=== PATIENT | male | born 1935 | race African-American/Black ===

== ENCOUNTER 2020-08-16 12:45 | Emergency (ER) | payer OTHER, SELFPAY ==
--- NOTE | ~2020-08-16 | XR_ITS ---
EXAMINATION: XR CHEST CLINICAL INFORMATION: Syncope COMPARISON: 03/17/2007 TECHNIQUE: Frontal view of the chest was obtained. FINDINGS: Extreme lordotic positioning limits assessment. No focal consolidation, pleural effusion or pneumothorax. The lungs are hyperinflated with flattening of the diaphragms, unchanged. Heart size is normal. Calcifications aortic arch. No acute osseous abnormality. Degenerative changes of the shoulders. XR/XR chest 1V IMPRESSION: No acute pulmonary process. COPD.
--- NOTE | ~2020-08-16 | CT_ITS ---
EXAMINATION: CT OF THE HEAD WITHOUT CONTRAST CT OF THE CERVICAL SPINE WITHOUT CONTRAST CLINICAL INFORMATION: Pain status post fall. Syncope. Head injury. COMPARISON: None. TECHNIQUE: Contiguous axial imaging was performed from the skullbase to vertex without intravenous administration of contrast. Coronal reformations of the head were obtained. Contiguous axial imaging was then performed from the skull base down to the thoracic inlet. Coronal and sagittal reformations of the cervical spine were obtained. DLP: 415.36 mGy-cm. FINDINGS: CT scan of the head: There is a small soft tissue contusion along the anterior frontal convexity without underlying calvarial fracture seen. The osseous structures are intact. There is evidence of subtle subarachnoid hemorrhage along the right frontoparietal lobe. No definite subdural hematoma is seen. There are subtle chronic bilateral hygromas versus prominence of the CSF space. No abnormal acute mass-effect or midline shift is seen. No extra-axial fluid collections are identified. There is some density seen within the right external auditory canal, probably representing cerumen. However, close clinical correlation is requested to exclude hemorrhage. No definite basilar skull fracture is noted. The ventricles and sulci are enlarged, consistent with involutional changes. 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 There is no evidence of acute territorial infarction. There is mild periventricular and deep white matter low-attenuation, consistent with ischemic small vessel disease. The mastoid air cells and visualized portions of the paranasal sinuses are well-aerated. CT scan of the cervical spine: There is a reversal of the normal cervical lordosis, possibly related to patient positioning. No evidence of acute fracture or dislocation. Craniocervical junction and atlantoaxial articulations are intact with prominent hypertrophic changes and degenerative changes noted. Prevertebral soft tissues are normal in thickness. There is severe degenerative disc disease with partial fusion across the disc spaces at C3-4, C4-5 and there is severe degenerative disc disease at C5-6 and C6-7. Small posterior disc osteophyte complexes are seen projecting into the thecal sac at multiple levels. Mild facet arthropathy is seen throughout the cervical spine. Ossifications at the tips of the posterior spinous processes in the mid and lower cervical spine are noted. The included soft tissues of the neck are unremarkable. Mild biapical pleural-based reticular nodular opacities seen in the lung apices, consistent with scarring. CT/CT cervical spine wo con IMPRESSION: CT scan of the head: -Small amount of subarachnoid hemorrhage is seen along the right frontoparietal lobe. Small scalp hematoma is also noted in this region. -There is suspicion of subtle chronic bilateral hygromas versus prominence of the CSF space. No definite subdural or epidural hematoma is seen. -No calvarial fracture. 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 CT scan of the cervical spine: -No evidence of acute cervical spine fracture or malalignment. -Extensive chronic degenerative changes throughout the cervical spine. This critical result was discussed with Dr. Erik Guerra 08/16/2020, 2:10 PM and it was ascertained that the content and urgency of this report was understood at the time of direct communication.
[2020-08-16 12:55] VITALS: BP 137/69; PULSE 80; RESP 16; TEMP 36.8; O2SAT 100; BMI 20.7
--- NOTE | 2020-08-16 13:05 | ECG_ITS ---
Test Reason : SYNCOPY Blood Pressure : / mmHG Vent. Rate : 072 BPM Atrial Rate : 072 BPM P-R Int : 216 ms QRS Dur : 146 ms QT Int : 430 ms P-R-T Axes : 067 -56 077 degrees QTc Int : 470 ms Sinus rhythm with sinus arrhythmia with 1st degree A-V block Left axis deviation Right bundle branch block Left ventricular hypertrophy with repolarization abnormality Cannot rule out Septal infarct , age undetermined Abnormal ECG No previous ECGs available Referred By: Erik Guerra Electronically Signed By:KATEY LACY MD
--- NOTE | 2020-08-16 13:08 | ED.SYNCOPE ---
HPI - Syncope General Chief Complaint: Syncope Stated Complaint: syncope Time Seen by Provider: 08/16/20 13:04 Source: patient and EMS Mode of arrival: EMS Limitations: no limitations History of Present Illness HPI narrative: 84-year-old male came into the emergency department by ambulance for evaluation of fall. 84-year-old male who [place] today, patient unable to remember details last thing he was remembering going down the escalator, then patient remember that bystander was around him, and he was bleeding from the back of his head and he was told that he blacked out. Patient otherwise declined any chest pain, shortness of breath, or abdominal pain. Patient is diabetic taking Glucophage, patient did not have breakfast today but also he did not take his medication yet. Patient had no history of syncopal episode in the past. Last physical exam was month ago and reportedly by the patient was unremarkable, patient do not remember the last tetanus shot. Related Data Allergies Allergy/AdvReac Type Severity Reaction Status Date / Time lisinopril Allergy Swelling Verified 08/16/20 12:58 Review of Systems Review of Systems: All other systems are reviewed and are negative Constitutional: Reports as per HPI and Reports no additional constitutional complaints Eyes: Reports as per HPI and Reports no additional eye complaints Reports system reviewed and no additional complaints, except as documented Cardiovascular: Reports as per HPI and Reports no additional cardiovascular complaints Respiratory: Reports as per HPI and Reports no additional respiratory complaints Gastrointestinal: Reports as per HPI and Reports no additional gastrointestinal complaints Genitourinary: Reports no additional female genitourinary complaints Musculoskeletal: Reports no additional musculoskeletal complaints Skin/Breast: Reports system reviewed and no additional complaints, except as docu Psychiatric: Reports no additional psychiatric complaints Endocrine: Reports no additional endocrine complaints Hematologic/Lymphatic: Reports no additional hematologic/lymphatic complaints Allergic/Immunologic: Reports no additional allergic/immunologic complaints Reports system reviewed and no additional complaints, except as documented and Reports Abnormal speech present [facility] Past Medical History Medical History Diabetes High cholesterol HTN (hypertension) Social History Social History Alcohol intake: never Smoked in Last 30 Days: No Use of substances other than those prescribed or required for medical reasons: No Advance Directives: Yes Advance Directives Information Provided: No Advance Directives on File: No Physical Exam Vital Signs: Vital Signs: Last Vital Signs Temp 98.3 F 08/16/20 12:55 Pulse 77 08/16/20 14:41 Resp 18 08/16/20 14:41 BP 144/68 H 08/16/20 14:41 Pulse Ox 99 08/16/20 14:41 Body Mass Index 20.7 Vital signs have been reviewed as appeared to be correct. Blood pressure normal. Heart rate normal. Respiration rate normal. Temperature normal. Oxygen saturation normal. Appearance: Alert. Oriented X3. No acute distress. Head: 3 cm laceration on the occipital area, mild bleeding. The galea is intact. Eyes: PERRLA. EOMI. Conjunctiva and sclera normal. Eyelids normal. ENT: TM's Normal. Pharynx normal. Uvula midline. Moist mucous membranes. No trismus noted. No drooling noted. No muffled voice noted. Neck: Normal inspection. Neck supple. FROM. No adenopathy. Thyroid Normal. No meningeal signs. No neck mass noted. CVS: Normal heart rate and rhythm. Heart sound normal. No murmurs noted. Pulses normal throughout. Respiratory: No respiratory distress. Painless inspiration. Breath sounds normal. No wheezes/rales/rhonchi noted. Chest nontender. No accessory muscle usage noted or decreased air movement noted. Abdomen: Soft and nontender. Bowel sounds normal in all 4 quadrants. No distention noted. No organomegaly noted. No visible injury noted. Back: No CVA tenderness. Full range of motion noted. Skin: Skin warm and dry. Normal skin color. Normal skin turgor. No rashes/lesions/lacerations noted. Extremities: No lower extremity edema. Extremities exhibit normal range of motion. Extremities nontender. Neuro: Oriented X 3. No motor deficit. No sensory deficit. Reflexes normal. GCS 15 Course Course Course Narrative: Assessment and plan. 84-year-old male came in by ambulance after have a syncopal episode with head injury, GCS of 15, patient had a CT of the head which showed a small subarachnoid hemorrhage of a right frontal parietal lobe, case was discussed with at [facility] to transfer the patient to be evaluated by the trauma team. Procedures Laceration Laceration 1: Site: scalp (Mid occipital) Size (cm): 3 Description: linear Depth: simple, single layer Local Anesthetic: lidocaine 1% Amount of anesthesia used (mL): 2 Skin layer closed with: other ([place]) Number of sutures: 3 MDM - Syncope Lab Data Attestation: I reviewed the patient's lab results. Result diagrams: 08/16/20 14:30 08/16/20 14:30 Labs: Lab Results 08/16/20 08/16/20 Range/Units 13:58 14:30 WBC 6.1 (4.8-10.8) X10*3/uL RBC 4.84 (4.60-5.80) X10*6/uL Hgb 12.8 L (14.0-18.0) g/dl Hct 40.9 L (42-52) % MCV 84.5 (80-98) fL MCH 26.4 L (27.0-33.0) pg MCHC 31.3 (31.0-36.0) g/dl RDW 14.9 (11.0-16.0) % Plt Count 208 (160-400) X10*3/uL MPV 8.9 L (9.4-12.4) fL Immature Gran % (Auto) 0.3 (0.0-0.4) % Neut % (Auto) 77.6 H (45-73) % Lymph % (Auto) 14.4 L (20-40) % [place] % (Auto) 6.5 (2-11) % Eos % (Auto) 0.7 (0-4) % Baso % (Auto) 0.5 (0-2) % Lymph # (Auto) 0.9 L (1.2-4.9) X10*3/uL [place] # (Auto) 0.4 (0.1-1.2) X10*3/uL Eos # (Auto) 0.0 (0.0-0.4) X10*3/uL Baso # (Auto) 0.0 (0.0-0.2) X10*3/uL Abs Immat Gran (auto) 0.02 (0.00-0.03) X10*3/uL Absolute Neuts (auto) 4.7 (2.0-8.3) X10*3/uL Absolute Nucleated RBC 0.000 (0.0-0.012) X10*3/uL Nucleated RBC % (auto) 0.0 (0.0-0.2) /100WBC COVID-19 ([facility]) Negative (Negative) COVID-19 Clin Com See Note Imaging Data CT scan - head: Radiologist's impression: CT scan of the head: -Small amount of subarachnoid hemorrhage is seen along the right frontoparietal lobe. Small scalp hematoma is also noted in this region. -There is suspicion of subtle chronic bilateral hygromas versus prominence of the CSF space. No definite subdural or epidural hematoma is seen. -No calvarial fracture. 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 CT scan of the cervical spine: -No evidence of acute cervical spine fracture or malalignment. -Extensive chronic degenerative changes throughout the cervical spine. Cervical spine CT: Radiologist's impression: CT scan of the head: -Small amount of subarachnoid hemorrhage is seen along the right frontoparietal lobe. Small scalp hematoma is also noted in this region. -There is suspicion of subtle chronic bilateral hygromas versus prominence of the CSF space. No definite subdural or epidural hematoma is seen. -No calvarial fracture. 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 CT scan of the cervical spine: -No evidence of acute cervical spine fracture or malalignment. -Extensive chronic degenerative changes throughout the cervical spine. ECG Data Interpretation: Sinus rhythm with sinus arrhythmia with first-degree AV block, left axis deviation, right bundle branch block, left ventricular hypertrophy. Discharge Plan Discharge Clinical Impression: Syncope and collapse, Traumatic subarachnoid hemorrhage Patient Disposition: [facility] Transfer Details: Emergency department [facility]
[2020-08-16] MEDS: Diphth,Pertus(ACell),Tet Adult 0.5 ML SYRINGE IM (13:59)
[2020-08-16] MEDS: Lidocaine HCl 1 % MPF 5 ML VIAL SUBCUT (13:59)
[2020-08-16 14:22] LABS: COVID-19 Test Negative (Negative)
[2020-08-16 14:33] LABS: MANUAL DIFF FLAG NO
--- NOTE | 2020-08-16 14:33 | PC.NURSE ---
pa bill at bedside to suture
[2020-08-16 14:34] LABS: Basophils Percent Auto 0.5 % (0-2); Eosinophils Percent Auto 0.7 % (0-4); Hematocrit 40.9 % (42-52); Hemoglobin 12.8 g/dl (14.0-18.0); Imm Gran Abs Auto 0.02 X10*3/uL (0.00-0.03); Imm Gran Pct Auto 0.3 % (0.0-0.4); Lymphocytes Absolute Auto 0.9 X10*3/uL (1.2-4.9); Lymphocytes Percent Auto 14.4 % (20-40); Mean Corpuscular HGB Conc 31.3 g/dl (31.0-36.0); Mean Corpuscular Hemoglobin 26.4 pg (27.0-33.0); Mean Corpuscular Volume 84.5 fL (80-98); Mean Platelet Volume 8.9 fL (9.4-12.4); Monocytes Absolute Auto 0.4 X10*3/uL (0.1-1.2); Monocytes Percent Auto 6.5 % (2-11); Neutrophils Absolute Auto 4.7 X10*3/uL (2.0-8.3); Neutrophils Percent Auto 77.6 % (45-73); Platelet Count 208 X10*3/uL (160-400); Red Blood Count 4.84 X10*6/uL (4.60-5.80); Red Cell Distribution Width 14.9 % (11.0-16.0); White Blood Count 6.1 X10*3/uL (4.8-10.8)
[2020-08-16 14:41] VITALS: BP 144/68; PULSE 77; RESP 18; O2SAT 99
--- NOTE | 2020-08-16 14:47 | PC.NURSE ---
3 danielle placed by pa. paperwork signed by pt. contacted. aware of plan of care for transfer.
[2020-08-16 14:58] LABS: B Type Natriuretic Peptide 28 pg/mL (<100)
[2020-08-16 15:05] LABS: Alanine Aminotransferase 18 U/L (0-40); Albumin Level 4.1 g/dL (3.5-5.0); Alkaline Phosphatase 58 U/L (39-117); Anion Gap 15 (12-20); Aspartate Amino Transferase 17 U/L (5-37); Bilirubin Direct 0.2 mg/dL (0.0-0.5); Bilirubin Total 0.5 mg/dL (0.0-1.0); Blood Urea Nitrogen 21 mg/dL (9-16); Calcium 9.7 mg/dL (8.4-10.2); Carbon Dioxide 30 mmol/L (22-29); Chloride 100 mmol/L (96-108); Estimated Glomerular Filt Rate > 60; Glucose Random 147 mg/dL (60-115); Lipase 17 U/L (8-78); Potassium 4.3 mmol/L (3.3-5.1); Sodium 141 mmol/L (135-145); Total Protein 7.2 g/dL (6.5-8.0)
--- NOTE | 2020-08-16 15:38 | PC.NURSE ---
attempt to give report to [facility], on hold
--- NOTE | 2020-08-16 15:42 | PC.NURSE ---
hua rn to call back
== END 2020-08-16 15:58 | disposition short-term general hospital (02) ==
PROVIDERS: Emergency Provider Emergency Medicine
DX: S01.01XA Laceration without foreign body of scalp, initial encounter (principal); R55 Syncope and collapse; G44.309 Post-traumatic headache, unspecified, not intractable; W01.0XXA Fall on same level from slipping, tripping and stumbling without subsequent striking against object, initial encounter; Y93.9 Activity, unspecified; Y92.59 Other trade areas as the place of occurrence of the external cause; Y99.9 Unspecified external cause status; Z20.822 Contact with and (suspected) exposure to COVID-19
CPT/HCPCS: 12002; 36415; 70450; 71045; 72125; 80048; 80076; 83690; 83880; 84484; 85025; 87635; 90471; 90715; 93005; 99285

== ENCOUNTER 2020-09-24 06:27 | Outpatient (REF) | payer OTHER, SELFPAY ==
[2020-09-24 06:45] LABS: Hemoglobin 11.7 g/dl (14.0-18.0); Mean Corpuscular HGB Conc 32.5 g/dl (31.0-36.0); Mean Corpuscular Hemoglobin 26.4 pg (27.0-33.0); Mean Corpuscular Volume 81.3 fL (80-98); Mean Platelet Volume 9.2 fL (9.4-12.4); Platelet Count 268 X10*3/uL (160-400); Red Blood Count 4.43 X10*6/uL (4.60-5.80); Red Cell Distribution Width 14.6 % (11.0-16.0); White Blood Count 5.6 X10*3/uL (4.8-10.8)
[2020-09-24 07:32] LABS: Alanine Aminotransferase 133 U/L (0-40); Albumin Level 3.4 g/dL (3.5-5.0); Alkaline Phosphatase 90 U/L (39-117); Anion Gap 10 (12-20); Aspartate Amino Transferase 84 U/L (5-37); Bilirubin Total 0.6 mg/dL (0.0-1.0); Blood Urea Nitrogen 15 mg/dL (9-16); Calcium 8.8 mg/dL (8.4-10.2); Carbon Dioxide 30 mmol/L (22-29); Chloride 103 mmol/L (96-108); Estimated Glomerular Filt Rate > 60; Glucose Random 130 mg/dL (60-115); Sodium 139 mmol/L (135-145); Total Protein 6.1 g/dL (6.5-8.0)
== END 2020-09-24 06:28 | disposition home or self-care (01) ==
LOC: HO.MMNH1L 06:27
PROVIDERS: Visit Provider Family Medicine
DX: I10 Essential (primary) hypertension (principal); E11.9 Type 2 diabetes mellitus without complications; Z91.81 History of falling
CPT/HCPCS: 36415; 80053; 85027

== ENCOUNTER 2020-09-29 | Outpatient (REF) | payer OTHER, SELFPAY ==
[2020-09-29 07:03] LABS: Hematocrit 36.6 % (42-52); Hemoglobin 11.6 g/dl (14.0-18.0); Mean Corpuscular HGB Conc 31.7 g/dl (31.0-36.0); Mean Corpuscular Hemoglobin 25.8 pg (27.0-33.0); Mean Corpuscular Volume 81.5 fL (80-98); Mean Platelet Volume 8.9 fL (9.4-12.4); Platelet Count 421 X10*3/uL (160-400); Red Blood Count 4.49 X10*6/uL (4.60-5.80); Red Cell Distribution Width 14.6 % (11.0-16.0); White Blood Count 9.1 X10*3/uL (4.8-10.8)
[2020-09-29 07:18] LABS: Anion Gap 13 (12-20); Blood Urea Nitrogen 19 mg/dL (9-16); Calcium 9.3 mg/dL (8.4-10.2); Carbon Dioxide 28 mmol/L (22-29); Chloride 102 mmol/L (96-108); Estimated Glomerular Filt Rate > 60; Glucose Random 114 mg/dL (60-115); Potassium 4.4 mmol/L (3.3-5.1); Sodium 139 mmol/L (135-145)
== END 2020-09-29 00:01 | disposition home or self-care (01) ==
LOC: HO.MMNH1L
PROVIDERS: Visit Provider Family Medicine
DX: I10 Essential (primary) hypertension (principal); E11.9 Type 2 diabetes mellitus without complications; Z91.81 History of falling
CPT/HCPCS: 36415; 80048; 85027

== ENCOUNTER 2020-10-01 00:30 | Outpatient (REF) | payer OTHER, SELFPAY ==
[2020-10-01 09:15] LABS: Glucose Urine UA NEG (NEG); Leukocyte Esterase Urine NEG (NEG); Nitrite Urine NEG (NEG); Specific Gravity - Urine 1.015 (1.005-1.025); Urine Blood NEG (NEG); Urine Ketones NEG (NEG); Urine Protein NEG (NEG-TRACE)
[2020-10-01 09:16] LABS: Appearance Urine CLEAR; Color Urine YELLOW
== END 2020-10-01 00:31 | disposition home or self-care (01) ==
LOC: HO.MMNH2L 00:30
PROVIDERS: Visit Provider Family Medicine
DX: I10 Essential (primary) hypertension (principal); E11.9 Type 2 diabetes mellitus without complications; I60.9 Nontraumatic subarachnoid hemorrhage, unspecified
CPT/HCPCS: 81003; 87086

== ENCOUNTER 2020-10-06 07:03 | Outpatient (REF) | payer OTHER, SELFPAY ==
[2020-10-06 07:16] LABS: Hematocrit 34.6 % (42-52); Hemoglobin 10.8 g/dl (14.0-18.0); Mean Corpuscular HGB Conc 31.2 g/dl (31.0-36.0); Mean Corpuscular Hemoglobin 25.4 pg (27.0-33.0); Mean Corpuscular Volume 81.4 fL (80-98); Mean Platelet Volume 8.5 fL (9.4-12.4); Platelet Count 534 X10*3/uL (160-400); Red Blood Count 4.25 X10*6/uL (4.60-5.80); Red Cell Distribution Width 14.6 % (11.0-16.0); White Blood Count 6.6 X10*3/uL (4.8-10.8)
[2020-10-06 07:42] LABS: Anion Gap 12 (12-20); Blood Urea Nitrogen 19 mg/dL (9-16); Calcium 9.3 mg/dL (8.4-10.2); Carbon Dioxide 27 mmol/L (22-29); Chloride 102 mmol/L (96-108); Estimated Glomerular Filt Rate > 60; Glucose Random 112 mg/dL (60-115); Potassium 4.1 mmol/L (3.3-5.1); Sodium 137 mmol/L (135-145)
== END 2020-10-06 07:04 | disposition home or self-care (01) ==
LOC: HO.MMNH1L 07:03
PROVIDERS: Visit Provider Family Medicine
DX: I10 Essential (primary) hypertension (principal); E11.9 Type 2 diabetes mellitus without complications; Z91.81 History of falling
CPT/HCPCS: 36415; 80048; 85027

== ENCOUNTER 2020-10-13 00:28 | Outpatient (REF) | payer OTHER, SELFPAY ==
[2020-10-13 06:07] LABS: Hematocrit 32.9 % (42-52); Hemoglobin 10.4 g/dl (14.0-18.0); Mean Corpuscular HGB Conc 31.6 g/dl (31.0-36.0); Mean Corpuscular Hemoglobin 25.7 pg (27.0-33.0); Mean Corpuscular Volume 81.2 fL (80-98); Platelet Count 367 X10*3/uL (160-400); Red Blood Count 4.05 X10*6/uL (4.60-5.80); Red Cell Distribution Width 14.6 % (11.0-16.0)
[2020-10-13 06:34] LABS: Anion Gap 9 (12-20); Blood Urea Nitrogen 16 mg/dL (9-16); Calcium 8.9 mg/dL (8.4-10.2); Carbon Dioxide 29 mmol/L (22-29); Chloride 105 mmol/L (96-108); Estimated Glomerular Filt Rate > 60; Glucose Random 93 mg/dL (60-115); Potassium 4.3 mmol/L (3.3-5.1); Sodium 139 mmol/L (135-145)
== END 2020-10-13 00:29 | disposition home or self-care (01) ==
LOC: HO.MMNH2L 00:28
PROVIDERS: Visit Provider Family Medicine
DX: I10 Essential (primary) hypertension (principal); E11.9 Type 2 diabetes mellitus without complications; Z91.81 History of falling
CPT/HCPCS: 36415; 80048; 85027

== ENCOUNTER 2020-10-20 00:10 | Outpatient (REF) | payer OTHER, SELFPAY ==
[2020-10-20 07:03] LABS: Hematocrit 32.6 % (42-52); Hemoglobin 10.4 g/dl (14.0-18.0); Mean Corpuscular HGB Conc 31.9 g/dl (31.0-36.0); Mean Corpuscular Hemoglobin 25.6 pg (27.0-33.0); Mean Corpuscular Volume 80.1 fL (80-98); Mean Platelet Volume 8.8 fL (9.4-12.4); Platelet Count 361 X10*3/uL (160-400); Red Blood Count 4.07 X10*6/uL (4.60-5.80); Red Cell Distribution Width 14.6 % (11.0-16.0); White Blood Count 5.5 X10*3/uL (4.8-10.8)
[2020-10-20 07:04] LABS: Anion Gap 13 (12-20); Blood Urea Nitrogen 13 mg/dL (9-16); Calcium 8.9 mg/dL (8.4-10.2); Carbon Dioxide 25 mmol/L (22-29); Chloride 103 mmol/L (96-108); Estimated Glomerular Filt Rate > 60; Glucose Random 99 mg/dL (60-115); Potassium 3.8 mmol/L (3.3-5.1); Sodium 137 mmol/L (135-145)
== END 2020-10-20 00:11 | disposition home or self-care (01) ==
LOC: HO.MMNH2L 00:10
PROVIDERS: Visit Provider Family Medicine
DX: I10 Essential (primary) hypertension (principal); E11.9 Type 2 diabetes mellitus without complications; Z91.81 History of falling
CPT/HCPCS: 36415; 80048; 85027

== ENCOUNTER 2020-10-27 | Outpatient (REF) | payer OTHER, SELFPAY ==
[2020-10-27 07:35] LABS: Hematocrit 35.4 % (42-52); Hemoglobin 11.1 g/dl (14.0-18.0); Mean Corpuscular HGB Conc 31.4 g/dl (31.0-36.0); Mean Corpuscular Hemoglobin 25.7 pg (27.0-33.0); Mean Corpuscular Volume 81.9 fL (80-98); Mean Platelet Volume 8.5 fL (9.4-12.4); Platelet Count 439 X10*3/uL (160-400); Red Blood Count 4.32 X10*6/uL (4.60-5.80); Red Cell Distribution Width 14.8 % (11.0-16.0); White Blood Count 5.3 X10*3/uL (4.8-10.8)
[2020-10-27 07:49] LABS: Anion Gap 17 (12-20); Blood Urea Nitrogen 13 mg/dL (9-16); Calcium 9.1 mg/dL (8.4-10.2); Carbon Dioxide 25 mmol/L (22-29); Chloride 102 mmol/L (96-108); Estimated Glomerular Filt Rate > 60; Glucose Random 86 mg/dL (60-115); Potassium 4.5 mmol/L (3.3-5.1); Sodium 139 mmol/L (135-145)
== END 2020-10-27 00:01 | disposition home or self-care (01) ==
LOC: HO.MMNH2L
PROVIDERS: Visit Provider Family Medicine
DX: I10 Essential (primary) hypertension (principal); E11.9 Type 2 diabetes mellitus without complications; Z91.81 History of falling
CPT/HCPCS: 36415; 80048; 85027

== ENCOUNTER 2020-11-03 00:46 | Outpatient (REF) | payer OTHER, SELFPAY ==
[2020-11-03 06:12] LABS: Hematocrit 32.9 % (42-52); Hemoglobin 10.4 g/dl (14.0-18.0); Mean Corpuscular HGB Conc 31.6 g/dl (31.0-36.0); Mean Corpuscular Hemoglobin 25.5 pg (27.0-33.0); Mean Corpuscular Volume 80.6 fL (80-98); Mean Platelet Volume 8.6 fL (9.4-12.4); Platelet Count 411 X10*3/uL (160-400); Red Blood Count 4.08 X10*6/uL (4.60-5.80); Red Cell Distribution Width 15.5 % (11.0-16.0); White Blood Count 5.4 X10*3/uL (4.8-10.8)
[2020-11-03 06:25] LABS: Anion Gap 13 (12-20); Blood Urea Nitrogen 22 mg/dL (9-16); Calcium 9.1 mg/dL (8.4-10.2); Carbon Dioxide 28 mmol/L (22-29); Chloride 103 mmol/L (96-108); Estimated Glomerular Filt Rate > 60; Glucose Random 110 mg/dL (60-115); Potassium 3.8 mmol/L (3.3-5.1); Sodium 140 mmol/L (135-145)
== END 2020-11-03 00:47 | disposition home or self-care (01) ==
LOC: HO.MMNH2L 00:46
PROVIDERS: Visit Provider Family Medicine
DX: I10 Essential (primary) hypertension (principal); E11.9 Type 2 diabetes mellitus without complications; Z91.81 History of falling
CPT/HCPCS: 36415; 80048; 85027

== ENCOUNTER 2020-11-10 08:00 | Outpatient (REF) | payer OTHER, SELFPAY ==
[2020-11-10 06:42] LABS: Hematocrit 34.8 % (42-52); Hemoglobin 10.8 g/dl (14.0-18.0); Mean Corpuscular Hemoglobin 25.3 pg (27.0-33.0); Mean Corpuscular Volume 81.5 fL (80-98); Mean Platelet Volume 9.2 fL (9.4-12.4); Platelet Count 398 X10*3/uL (160-400); Red Blood Count 4.27 X10*6/uL (4.60-5.80); Red Cell Distribution Width 15.5 % (11.0-16.0); White Blood Count 5.8 X10*3/uL (4.8-10.8)
[2020-11-10 07:01] LABS: Anion Gap 13 (12-20); Blood Urea Nitrogen 16 mg/dL (9-16); Calcium 9.2 mg/dL (8.4-10.2); Carbon Dioxide 30 mmol/L (22-29); Chloride 101 mmol/L (96-108); Estimated Glomerular Filt Rate > 60; Glucose Random 96 mg/dL (60-115); Potassium 4.2 mmol/L (3.3-5.1); Sodium 140 mmol/L (135-145)
== END 2020-11-10 08:01 | disposition home or self-care (01) ==
LOC: HO.MMNH2L 08:00
PROVIDERS: Visit Provider Family Medicine
DX: I10 Essential (primary) hypertension (principal); E11.9 Type 2 diabetes mellitus without complications; Z91.81 History of falling
CPT/HCPCS: 36415; 80048; 85027

== ENCOUNTER 2020-11-17 21:15 | Outpatient (REF) | payer OTHER, SELFPAY ==
[2020-11-17 06:49] LABS: Hematocrit 32.1 % (42-52); Hemoglobin 10.1 g/dl (14.0-18.0); Mean Corpuscular HGB Conc 31.5 g/dl (31.0-36.0); Mean Corpuscular Hemoglobin 25.3 pg (27.0-33.0); Mean Corpuscular Volume 80.5 fL (80-98); Mean Platelet Volume 8.9 fL (9.4-12.4); Platelet Count 339 X10*3/uL (160-400); Red Blood Count 3.99 X10*6/uL (4.60-5.80); Red Cell Distribution Width 15.5 % (11.0-16.0); White Blood Count 4.7 X10*3/uL (4.8-10.8)
[2020-11-17 06:57] LABS: Anion Gap 13 (12-20); Blood Urea Nitrogen 16 mg/dL (9-16); Carbon Dioxide 28 mmol/L (22-29); Chloride 103 mmol/L (96-108); Estimated Glomerular Filt Rate > 60; Glucose Random 97 mg/dL (60-115); Potassium 3.9 mmol/L (3.3-5.1); Sodium 140 mmol/L (135-145)
== END 2020-11-17 21:16 | disposition home or self-care (01) ==
LOC: HO.MMNH2L 21:15
PROVIDERS: Visit Provider Family Medicine
DX: I10 Essential (primary) hypertension (principal); E11.9 Type 2 diabetes mellitus without complications; Z91.81 History of falling
CPT/HCPCS: 36415; 80048; 85027

== ENCOUNTER 2020-11-24 00:13 | Outpatient (REF) | payer OTHER, SELFPAY | END 2020-11-24 00:14 | disposition home or self-care (01) | LOC: HO.MMNH2L 00:13 | PROVIDERS: Visit Provider Family Medicine | DX: Z13.89 Encounter for screening for other disorder (principal) ==